=== PATIENT | female | born 1975 | race Two or more races ===

== ENCOUNTER 2022-12-30 13:39 | Emergency (ER) | payer MEDICAID, OTHER ==
[~2022-12-30] VITALS: Ht 165.1 cm; Wt 76.3 kg
[2022-12-30 15:55] VITALS: BP 114/76
[2022-12-30] MEDS ORDERED: IBUPROFEN 800 MG TAB PO ONE (16:00)
[2022-12-30] MEDS ORDERED: IBUP800T27 PO (16:02)
== END 2022-12-30 16:11 | disposition home or self-care (01) ==
LOC: ER 13:39
DX: S93.402A Sprain of unspecified ligament of left ankle, initial encounter (principal); Z79.1 Long term (current) use of non-steroidal anti-inflammatories (NSAID); W18.39XA Other fall on same level, initial encounter; Y93.89 Activity, other specified; Y92.89 Other specified places as the place of occurrence of the external cause; Y99.8 Other external cause status
CPT/HCPCS: 73590

== ENCOUNTER 2023-01-20 10:39 | Emergency (ER) | payer MEDICAID ==
[~2023-01-20] VITALS: Ht 165.1 cm; Wt 85.0 kg
[~2023-01-20 10:39] MED LIST: IBUP800T27 PO
[2023-01-20] MEDS ORDERED: LORazepam 0.5 MG TAB PO ONE (12:00)
[2023-01-20 12:16] VITALS: BP 140/79
[2023-01-20] MEDS ORDERED: LORA0.5T20 PO (13:26)
== END 2023-01-20 13:34 | disposition home or self-care (01) ==
LOC: ER 10:39
DX: F41.1 Generalized anxiety disorder (principal); F32.9 Major depressive disorder, single episode, unspecified
CPT/HCPCS: 36415; 84484; 93005

== ENCOUNTER 2025-04-10 20:22 | Emergency (ER) | payer MEDICAID ==
[~2025-04-10] VITALS: Ht 167.6 cm; Wt 96.2 kg
[~2025-04-10 20:22] MED LIST changes: +IBUP-1456 PO; -IBUP800T27 PO; +LORA-1121 PO
[2025-04-10] MEDS: HYDROcodone-ACET 10/325MG TAB PO ONE (22:15)
--- NOTE | 2025-04-10 22:22 | ED.PDOC ---
History of Present Illness HPI Comments 50 year old female presents to the ED for the c/c of Left Leg pain. Pt states that her pain started 4x days ago, and notes of no alleviating factors at this time. Pt denies any recent injury. No redness, swelling, or trauma noted. Pt denies any N/V/D, ABD pain, Chest pain, FRANKLIN, or other associated symptoms, m odifiers, recent injuries or sick contacts present at this time. Patient denies any history of low back pain or leg pain concerns. Chief Complaint: Lower Extremity Time Seen by MD: 22:19 Primary Care Provider: DAVE Reviewed Notes: Nurses Notes, Medications, Allergies Allergies: Coded Allergies: NO KNOWN ALLERGIES (Unverified , 12/30/22) Home Meds Active Scripts Lorazepam (ATIVAN TABLET) 0.5 Mg Tb, 1 TAB PO BID, #12 TAB Prov:TRICIA MCCABE 01/20/23 Ibuprofen (Ibuprofen) 800 Mg Tab, 1 TAB PO TID, #30 TAB Prov:TRICIA MCCABE 12/30/22 Information Source: Patient Mode of Arrival: Wheelchair Severity: Moderate Timing: Days Duration: Intermittent, Days Prehospital treatment: None Past Medical History PAST MEDICAL HISTORY: Anxiety, Depression Surgical History: Denies all surgeries 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 AND ASSURANCE MANAGER Hx Family History Family History: Reviewed,noncontributory to illness Social History Smoker: Non-Smoker Alcohol: Denies ETOH Use Drugs: Denies Drug Use Lives In: Home Constitutional: denies: chills, diaphoresis, fatigue, fever, malaise, sweats, weakness, others EENTM: denies: blurred vision, double vision, ear bleeding, ear discharge, ear drainage, ear pain, ear ringing, eye pain, eye redness, hearing loss, mouth pain, mouth swelling, nasal discharge, nose bleeding, nose congestion, nose pain, photophobia, tearing, throat pain, throat swelling, voice changes, others Respiratory: denies: cough, hemoptysis, orthopnea, SOB at rest, shortness of breath, SOB with excertion, stridor, wheezing, others Cardiovascular: denies: chest pain, dizzy spells, diaphoresis, Dyspnea on exertion, edema, irregular heart beat, left arm pain, lightheadedness, palpitations, PND, syncope, others Gastrointestinal: denies: abdomen distended, abdominal pain, blood streaked bowels, constipated, diarrhea, dysphagia, difficulty swallowing, hematemesis, melena, nausea, poor appetite, poor fluid intake, rectal bleeding, rectal pain, vomiting, others Genitourinary: denies: abnormal vagina bleeding, burning, dyspareunia, dysuria, flank pain, frequency, hematuria, incontinence, pain, , vagina discharge, urgency, others Neurological: denies: dizziness, fainting, headache, left sided numbness, left sided weakness, numbness, paresthesia, pre-existing deficit, right sided numb ness, right sided weakness, seizure, speech problems, tingling, tremors, weakness, others Musculoskeletal: reports: others (Left leg pain ); denies: back pain, gout, joint pain, joint swelling, muscle pain, muscle stiffness, neck pain Integumetry: denies: bruises, change in color, change in hair/nails, dryness, laceration, lesions, lumps, rash, wounds, others Allergic/Immunocompromised: denies: Difficulty Healing, Frequent Infections, Hives, Itching, others Hematologic/Lymphatic: denies: anemia, blood clots, easy bleeding, easy bruising, swollen glands, others Endocrine: denies: excessive hunger, excessive sweating, excessive thirst, excessive urination, flushing, intolerance to cold, intolerance to heat, unexplained weight gain, unexplained weight loss, others Psychiatric: denies: anxiety, bipolar disorder, depression, hopeless, panic disorder, schizophrenia, sleepless, suicidal, others All Other Systems: Reviewed and Negative Physical Exam General Appearance: Moderate Distress (Moderate distress due to leg pain concerns.), Normal HEENT: Normal ENT Inspection, Pharynx Normal, TMs Normal Neck: Full Range of Motion, Non-Tender, Normal, Normal Inspection Respiratory: Chest Non-Tender, Lungs Clear, No Accessory Muscle Use, No Respiratory Distress, Normal Breath Sounds Cardiovascular: No Edema, No JVD, No Murmur, No Gallop, Normal Peripheral Pulses, Regular Rate/Rhythm Breast Exam: Deferred Gastrointestinal: No Organomegaly, Non Tender, No Pulsatile Mass, Normal Bowel Sounds, Soft Genitalia: Deferred Pelvic: Deferred Rectal: Deferred Extremities: Other (Tenderness to palpation throughout lateral aspect of left thigh. No signs of trauma. No crepitus.) Musculoskeletal : Apperance: Normal Neurologic: Alert, Normal Affect, Normal Mood, No Sensory Deficits Cerebellar Function: NOT DONE Reflexes: NOT DONE Skin: Dry, Normal Color, Warm Lymphatic: No Adenopathy Was a procedure done? Was a procedure done?: No Differential Dx Considerations may include: Degenerative disc disease of the lumbar spine, arthritis, lumbar radiculopathy, neuropathy X-Ray, Labs, Meds, VS Vital Signs Date Time Temp Pulse Resp B/P (MAP) Pulse Ox O2 Delivery O2 Flow Rate FiO2 04/10/25 23:09 85 16 100 Room Air 04/10/25 23:09 98.2 85 16 100/67 (78) 100 98.2 04/10/25 22:09 97.7 103 18 100/71 (81) 97 97.7 X-Ray, Labs, Meds, VS Comment All studies performed the ED were evaluated by me personally. Imaging studies were unremarkable for any acute concerns including relatively unremarkable lumbar series. Patient appears to be experiencing some neuropathic pain concerns that it probably coming from her lumbar spine. Advised patient utilize pain medication and follow up with the primary care provider for continued e valuation as needed. Time of 1ST Reevaluation: 23: Reevaluation 1ST: Improved Consultation: PCP Patient Education/Counseling: Diagnosis, Treatment, Need For Follow Up Family Education/Counseling: Diagnosis, Treatment, No Family Present SEPSIS Sepsis Screen Date sepsis recognized/suspect: Apr 10, 2025 Time Sepsis recognized/suspect: 2213 Recent Procedure: No On Antibiotic Therapy: No Respiratory Rate >20: No Heart Rate >90: Yes Temp<36 C (96.8 F) or >38.3 C: No SBP <90 or MAP <65 mmHG: No New Acute Mental Status Change: No Is the patient on CPAP, BIPAP,: No Physician Orders Lumbar Spine 3 View (04/10/25 22:13) L Femur Xray (04/10/25 22:13) Vital Signs Date Time Temp Pulse Resp B/P (MAP) Pulse Ox O2 Delivery O2 Flow Rate FiO2 04/10/25 23:09 85 16 100 Room Air 04/10/25 23:09 98.2 85 16 100/67 (78) 100 98.2 04/10/25 22:09 97.7 103 18 100/71 (81) 97 97.7 Departure 1 Departure Time of Disposition: 23:26 Impression: Primary Impression: Lumbar radiculopathy Additional Impression: Neuropathic pain involving left lateral femoral cutaneous nerve Disposition: HOME / SELF CARE / HOMELESS Condition: Stable Additional Instructions: Advised pain medication as needed and additionally, patient should follow up with the primary care provider for continued evaluation if symptoms do not impro ve. e-Prescriptions Hydrocodone-Acetaminophen (Hydrocodone Bitartrate/AC 5-325 mg) 1 Tab Tab 1 TAB PO Q6HP PRN, #20 TAB Prov: RAQUEL LOPEZ PAC 04/10/25 Ibuprofen Micronized (Ibuprofen) 800 Mg Tab 800 MG PO Q8HP PRN, #20 TAB Prov: RAQUEL LOPEZ PAC 04/10/25 Discharged With: Self, Relative Critical Care Note Critical Care Time?: No Stability Stability form required: No Heart Score Heart Score: Heart Score Response (Comments) Value History N/A 0 EKG N/A 0 Age N/A 0 Risk Factors N/A 0 Troponin N/A 0 Total 0 I personally scribed for RAQUEL LOPEZ PAC ([email or web address]) on 04/10/25 at 22:22. Electronically submitted by Alex Lancaster ([email or web address]). RAQUEL LOPEZ PAC Apr 10, 2025 22:22
--- NOTE | 2025-04-10 22:56 | DVH ---
CLINICAL INDICATION: Pain TECHNIQUE: XY L FEMUR XRAY Comparison: None FINDINGS: No osseous or joint abnormality identified with no fracture or dislocation. Joint spaces are normal. IMPRESSION: No abnormality demonstrated.
--- NOTE | 2025-04-10 22:57 | DVH ---
INDICATION: Lumbar radiculopathy COMPARISON: None TECHNIQUE: 3 views of the lumbar spine were obtained. FINDINGS: The lumbar vertebral alignment is normal. Moderate L5-S1 disc height loss with adjacent endplate sclerosis. The intervertebral disc spaces are otherwise well-maintained. No significant facet arthropathy is noted. No acute fracture, vertebral compression deformity or aggressive osseous lesions. The paravertebral soft tissues are grossly unremarkable. IMPRESSION: 1. No acute fracture. 2. Mild degenerative change of the lower lumbar spine.
[2025-04-10 23:09] VITALS: BP 100/67; PULSE 85; RESP 16; TEMP 98.2; O2SAT 100
[2025-04-10] MEDS ORDERED: IBUP-1455 PO (23:27)
[2025-04-10] MEDS ORDERED: HYDR-4902 PO (23:27)
== END 2025-04-10 23:40 | disposition home or self-care (01) ==
LOC: ER 20:22
DX: M47.26 Other spondylosis with radiculopathy, lumbar region (principal); F41.9 Anxiety disorder, unspecified; F32.A Depression, unspecified; Z79.899 Other long term (current) drug therapy
CPT/HCPCS: 72100

== ENCOUNTER 2025-07-13 19:23 | Emergency (ER) | payer MEDICAID ==
[~2025-07-13] VITALS: Ht 165.1 cm; Wt 90.1 kg
[~2025-07-13 19:23] MED LIST changes: +HYDR-4902 PO; +IBUP-1455 PO
[2025-07-13 19:26] VITALS: BP 109/76; PULSE 78; RESP 16; TEMP 97.1; O2SAT 98
[2025-07-13 20:10] LABS: Hematocrit 31.9 % (36.0-46.0); Hemoglobin 10.1 g/dL (12.2-16.2); Mean Corpuscular Hemoglobin 22.4 pg (28.0-32.0); Mean Corpuscular Volume 70.6 fL (80.0-100.0); Nucleated Red Blood Cells % 0.0 %
[2025-07-13 20:15] LABS: Chloride 106 mmol/L (98-107); Potassium 3.7 mmol/L (3.5-5.1); Sodium 138 mmol/L (136-145)
[2025-07-13 20:16] LABS: Anion Gap 10 (5-15); Calcium 8.7 mg/dL (8.7-10.4); Carbon Dioxide 22 mmol/L (20-31)
[2025-07-13 20:21] LABS: BUN/Creatinine Ratio 10.8 (10.0-20.0); Glucose 88 mg/dL (74-106)
[2025-07-13 20:27] LABS: Blood Urea Nitrogen 8 mg/dL (9-23)
== END 2025-07-13 22:45 | disposition left against medical advice (07) ==
LOC: ER 19:23
DX: R55 Syncope and collapse (principal); Z79.899 Other long term (current) drug therapy
CPT/HCPCS: 36415; 80048; 84484; 85025

== ENCOUNTER 2025-07-31 19:12 | Inpatient (IN) | payer MEDICAID ==
[~2025-07-31] VITALS: Ht 165.1 cm; Wt 102.0 kg
[2025-07-31 20:04] LABS: Hematocrit 31.9 % (36.0-46.0); Hemoglobin 10.0 g/dL (12.2-16.2); Mean Corpuscular Hemoglobin 22.4 pg (28.0-32.0); Mean Corpuscular Volume 71.4 fL (80.0-100.0); Nucleated Red Blood Cells % 0.1 %
--- NOTE | 2025-07-31 20:20 | DVH ---
INDICATION: GEN WEAK TECHNIQUE: Frontal view of the chest. COMPARISON: None FINDINGS/IMPRESSION: The lungs are clear. The cardiomediastinal silhouette is unremarkable. No pleural effusion or pneumothorax. No acute osseous abnormality.
[2025-07-31 20:24] LABS: Alanine Aminotransferase 14 U/L (7-40); Albumin 4.1 g/dL (3.2-4.8); Alkaline Phosphatase 91 U/L (46-116); Anion Gap 9 (5-15); BUN/Creatinine Ratio 13.0 (10.0-20.0); Bilirubin, Total 0.3 mg/dL (0.2-1.0); Blood Urea Nitrogen 12 mg/dL (9-23); Calcium 8.7 mg/dL (8.7-10.4); Carbon Dioxide 26 mmol/L (20-31); Chloride 107 mmol/L (98-107); Glucose 89 mg/dL (74-106); Magnesium 2.0 mg/dL (1.6-2.6); Potassium 4.5 mmol/L (3.5-5.1); Sodium 142 mmol/L (136-145); Total Protein 7.3 g/dL (5.7-8.2)
--- NOTE | 2025-07-31 20:32 | ED.PDOC ---
History of Present Illness HPI Comments HPI: 50 y/o F, with PMHx of anemia presents to the ED for CC of generalized weakness. Patient states, she has been experiencing symptoms of weakness, fatigue, and body-aches [id number]. Patient reports, that she had labs drawn recently and was told that her Hbg was <7.0; unable to recall exact value at this time. Patient further relays, that she has had multiple test done to r/o cancer however, has not been diagnosed with any specific form of cancer yet. Patient denies active bleeding, vision changes, nausea, or vomiting. No other symptoms or modifying factors are present at this time. Initial Vitals BP: 101/73 HR: 95 RR: 18 O2: 97% Temp: 98.4 Past Medical History: Anemia Past Surgical History: Appendectomy, tubal ligation Social History: denies any Medications: denies any Allergies: NKA ANAYA: WEAKNESS, EXERTIONAL DYSPNEA, FATIGUE, SYNCOPAL EPISODE. NO FALL OR TRAUMA. HPI: Poor Historian. REVIEW OF SYSTEMS: CONSTITUTIONAL: Denies acute: fever, diaphoresis, chills, HEAD: Denies acute: headache, photophobia Eyes: Denies acute: Double vision, vision loss, eye pain, eye discharge. EARS: Denies acute: tinnitus, hearing loss, ear discharge, ear pain, THROAT: Denies acute: sore throat, swelling, difficulty swallowing , pain with swallowing, change in voice. NECK: Denies acute: neck pain, neck swelling, stiff neck. HEART: Denies acute : chest pain, palpitations, LUNGS: Denies acute: wheezing, cough, hemoptysis ABDOMEN: Denies acute: abdominal pain, Nausea, Vomiting, diarrhea, melena , hematemesis, hematochezia SKIN: Denies acute: rash, redness, lesions, itchiness. EXTREMITIES: Denies acute: calf pain, numbness, tingling, weakness, denies pain in extremity. Denies acute: Low back pain. Neuro: Denies acute: focal neurological deficit, motor or sensory focal neurological deficit, tremors, seizure like activity, confusion, change in mental status, loss of bowel or bladder function, cauda equina like symptoms. : Denies acute: dysuria, hematuria, flank pain, increase in urinary frequency. PSYCH: Denies acute: hallucination, suicidal ideation, homicidal ideation. FEMALE: Denies acute: abnormal vaginal bleeding, foul odor, unusual discharge. PHYSICAL EXAM: General: ----moderate----acute distress, awake and alert. Head: normocephalic, atraumatic. No raccoon's eyes, no saxena sign. Neck: supple, trachea is midline, no swelling. Throat: Normal phonation. Eyes:, no erythema, no purulent discharge, no proptosis, no icterus. Heart: regular rate, regular rhythm, no significant murmur appreciated. Lungs: no apparent respiratory distress, Able to speak in full sentences. No wheezing, no rhonchi, no crackles. No stridors Clear to auscultation bilaterally. Abdomen: non tender to palpation, non distended, soft, no guarding, no rebound, + bowel sounds. Neuro: Awake, Alert, oriented to name, self, situation, follows commands GCS=15. Speech is normal. Skin: no petechia, no purpura, no cyanosis, non-pale, not jaundice. Lower extremities: --no - Pitting edema no deformity, no focal swelling, no calf TTP. Makes eye contact. moves all four extremities. Face: no apparent facial droop. Ambulating in the ED independently. ED COURSE: DISCLAIMER: This medical document was created using an electronic medical record system with voice recognition software and computerized dictation system. Although this document has been carefully reviewed, there might still be some phonetic and typographical errors. Occasional wrong-word or "sound-alike" substitutions may have occurred due to the inherent limitations of voice recognition software. These areas are purely typographical due to imperfections of the software programs and do not reflect any compromise in the patient's medical care. Please read the chart carefully and recognize, using context, where these substitutions have occurred. Chief Complaint: General Weakness Time Seen by MD: 20:25 Primary Care Provider: DAVE Reviewed Notes: Nurses Notes, Medications, Allergies Allergies: Coded Allergies: NO KNOWN ALLERGIES (Unverified , 12/30/22) Home Meds Active Scripts Hydrocodone-Acetaminophen (Hydrocodone Bitartrate/AC 5-325 mg) 1 Tab Tab, 1 TAB PO Q6HP PRN, #20 TAB Prov:RAQUEL LOPEZ PAC 04/10/25 Ibuprofen Micronized (Ibuprofen) 800 Mg Tab, 800 MG PO Q8HP PRN, #20 TAB Prov:RAQUEL LOPEZ PAC 04/10/25 Lorazepam (ATIVAN TABLET) 0.5 Mg Tb, 1 TAB PO BID, #12 TAB Prov:TRICIA MCCABE 01/20/23 Ibuprofen (Ibuprofen) 800 Mg Tab, 1 TAB PO TID, #30 TAB Prov:TRICIA MCCABE 12/30/22 Information Source: Patient Mode of Arrival: Ambulatory Severity: Moderate Timing: Months Duration: Since onset Prehospital treatment: None Was a procedure done? Was a procedure done?: No Differential Dx Considerations may include: anemia X-Ray, Labs, Meds, VS Vital Signs Date Time Temp Pulse Resp B/P (MAP) Pulse Ox O2 Delivery O2 Flow Rate FiO2 07/31/25 19:18 98.4 95 18 101/73 97 98.4 Lab Test 07/31/25 20:00 07/31/25 19:44 Range/Units Urine Color Pending Urine Clarity Pending Urine pH Pending Urine Specific Tell Pending Urine Protein Pending Urine Ketones Pending Urine Blood Pending Urine Nitrite Pending Urine Bilirubin Pending Urine Urobilinogen Pending Urine Leukocyte Esterase Pending Urine RBC Pending Urine Microscopic WBC Pending Urine Squamous Epithelial Cells Pending Urine Bacteria Pending Urine Glucose Pending White Blood Count 5.9 4.4-10.8 10^3/uL Red Blood Count 4.47 4.0-5.20 10^6/uL Hemoglobin 10.0 L 12.2-16.2 g/dL Hematocrit 31.9 L 36.0-46.0 % Mean Corpuscular Volume 71.4 L 80.0-100.0 fL Mean Corpuscular Hemoglobin 22.4 L 28.0-32.0 pg Mean Corpuscular Hemoglobin Concent 31.4 L 32.0-36.0 g/dL Red Cell Distribution Width 17.6 H 11.8-14.3 % Platelet Count 341 140-450 10^3/uL Mean Platelet Volume 7.4 6.9-10.8 fL Neutrophils (%) (Auto) 65.7 37.0-80.0 % Lymphocytes (%) (Auto) 23.6 10.0-50.0 % Monocytes (%) (Auto) 9.1 0.0-12.0 % Eosinophils (%) (Auto) 1.1 0.0-7.0 % Basophils (%) (Auto) 0.5 0.0-2.0 % Neutrophils # (Auto) 3.9 1.6-8.6 10 ^3/uL Lymphocytes # (Auto) 1.4 0.4-5.4 10 ^3/uL Monocytes # (Auto) 0.5 0-1.3 10 ^3/uL Eosinophils # (Auto) 0.1 0-0.8 10 ^3/uL Basophils # (Auto) 0 0-0.2 10 ^3/uL Nucleated Red Blood Cells 0.1 % Sodium Level 142 136-145 mmol/L Potassium Level 4.5 3.5-5.1 mmol/L Chloride Level 107 98-107 mmol/L Carbon Dioxide Level 26 20-31 mmol/L Anion Gap 9 5-15 Blood Urea Nitrogen 12 9-23 mg/dL Creatinine 0.92 0.550-1.02 mg/dL Glomerular Filtration Rate Calc 76 >90 mL/min BUN/Creatinine Ratio 13.0 10.0-20.0 Serum Glucose 89 74-106 mg/dL Lactic Acid Level 1.3 0.4-2.0 mmol/L Calcium Level 8.7 8.7-10.4 mg/dL Magnesium Level 2.0 1.6-2.6 mg/dL Total Bilirubin 0.3 0.2-1.0 mg/dL Aspartate Amino Transferase (AST) 14 13-40 U/L Alanine Aminotransferase (ALT) 14 7-40 U/L Alkaline Phosphatase 91 46-116 U/L Troponin I High Sensitivity < 3 L </=34 ng/L Total Protein 7.3 5.7-8.2 g/dL Albumin 4.1 3.2-4.8 g/dL [address] [address] Ph: [phone] DIAGNOSTIC IMAGING Diagnostic Imaging Report : [id number] Signed PATIENT: JACLYN LAMBISISACCT: [id number] UNIT: [id number] : 1975 LOC: ER ROOM / BED: / AGE / SEX: 50 / F ADM STATUS: REG ER SERVICE 28 ORDERING PHYSICIAN: PRABHAKAR RIBEIRO DO PROCEDURE(s): CXRP - CHEST PORTABLE REASON: GEN SAMIR ORDER NUMBER(s): [id number], ACCESSION NUMBER(s): [id number] INDICATION: GEN DAWSON TECHNIQUE: Frontal view of the chest. COMPARISON: None FINDINGS/IMPRESSION: The lungs are clear. The cardiomediastinal silhouette is unremarkable. No pleural effusion or pneumothorax. No acute osseous abnormality. ATED BY: FEDE BLANTON MD DICTATED DATE/TIME: 07/31/252016 SIGNED BY: FEDE BLANTON MD SIGNED DATE/TIME: 07/31/252016 CC: Time of 1ST Reevaluation: 20:55 Reevaluation 1ST: Unchanged Patient Education/Counseling: Diagnosis, Treatment Family Education/Counseling: No Family Present SEPSIS Sepsis Screen Date sepsis recognized/suspect: Jul 31, 2025 Time Sepsis recognized/suspect: 1923 Recent Procedure: No On Antibiotic Therapy: No Respiratory Rate >20: No Heart Rate >90: Yes Temp<36 C (96.8 F) or >38.3 C: No SBP <90 or MAP <65 mmHG: No New Acute Mental Status Change: No Is the patient on CPAP, BIPAP,: No Physician Orders Maintenance And Custodian Supervisor (07/31/25 ) Urinalysis (07/31/25 19:29) Type And Screen (07/31/25 19:29) Electrocardigram (07/31/25 19:29) Chest Portable (07/31/25 19:29) Vital Signs Date Time Temp Pulse Resp B/P (MAP) Pulse Ox O2 Delivery O2 Flow Rate FiO2 07/31/25 19:18 98.4 95 18 101/73 97 98.4 Laboratory Tests Test 07/31/25 19:44 Lactic Acid Level 1.3 mmol/L (0.4-2.0) White Blood Count 5.9 10^3/uL (4.4-10.8) Departure 1 Departure Time of Disposition: 21:12 Impression: Primary Impression: Symptomatic anemia Additional Impressions: Generalized weakness Exertional dyspnea Syncope and collapse Disposition: ADMITTED INPATIENT Admit to: [facility] Condition: Guarded Discharged With: Self Critical Care Note Critical Care Time?: No I personally scribed for PRABHAKAR RIBEIRO DO ([email or web address]) on 07/31/25 at 20:32. Electronically submitted by Cece Carpenter ([email or web address]). I personally scribed for PRABHAKAR RIBEIRO DO ([email or web address]) on 07/31/25 at 21:08. Electronically submitted by Cece Carpenter ([email or web address]). PRABHAKAR RIBEIRO DO Jul 31, 2025 20:32
[2025-07-31 21:20] LABS: Urine Protein, UAD TRACE (Negative)
[2025-07-31 21:45] VITALS: PULSE 86; RESP 18; O2SAT 98
[2025-07-31] MEDS: SODIUM CHLORIDE 0.9% 1,000 ML IV ONE (22:00)
[2025-08-01] VITALS (7 sets, daily range): BP systolic 94–130; BP diastolic 42–67; PULSE 79–91; RESP 16–20; TEMP 97.8–98.8; O2SAT 95–100
[2025-08-01] MEDS ORDERED: ONDANSETRON HCL 4 MG/2 ML VIAL IV PRN (00:15)
[2025-08-01] MEDS ORDERED: ACETAMINOPHEN 325 MG TAB PO PRN (00:15)
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
[2025-08-01 00:46] LABS: Hematocrit 30.4 % (36.0-46.0); Hemoglobin 9.5 g/dL (12.2-16.2)
[2025-08-01 00:59] LABS: Alanine Aminotransferase 12 U/L (7-40); Alkaline Phosphatase 84 U/L (46-116); Total Protein 7.1 g/dL (5.7-8.2)
[2025-08-01 01:00] LABS: Albumin 4.0 g/dL (3.2-4.8)
[2025-08-01 01:00] LABS: Total Iron Binding Capacity 364.0 ug/dL (250-425)
[2025-08-01 01:03] LABS: Bilirubin, Total 0.3 mg/dL (0.2-1.0)
[2025-08-01 01:03] LABS: Iron 43.0 ug/dL (50-170)
[2025-08-01 01:44] LABS: Bilirubin, Direct < 0.1 mg/dL (<0.3)
--- NOTE | 2025-08-01 02:00 | DVH ---
Procedure: US PELVIC 08/01/2025 01:07 AM Indication: abdominal pain Comparison: US PELVIC TRANS AB AND TRANSVAG on DOS: 07/23/25 Technique: Multiple real-time grayscale transvaginal and transabdominal sonographic images along with color and duplex doppler of the uterus and ovaries were obtained FINDINGS: UTERUS: Retroverted, measuring 9.3 x 6.6 x 6.8 cm in length. The uterus is heterogeneous in appearance. ENDOMETRIAL STRIPE: 14 mm, with small cystic spaces, the largest of which measures up to 9 mm. RIGHT OVARY: 2.1 x 2.2 x 2.0 cm. 4.8 mL in volume. Preserved vascular flow. No suspicious lesions identified. LEFT OVARY: 2.1 x 2.0 x 1.9 cm in length. Preserved vascular flow. There is a thick-walled left adnexal lesion with peripheral vascularity measuring 1.6 cm. CUL-DE-SAC: No significant fluid noted. OTHER: None. IMPRESSION: 1. Heterogeneous appearance of the uterus. Small cystic regions in the endometrium. Correlation with HCG values is suggested. A nonemergent MRI of the pelvis may be beneficial in further assessment of the uterine heterogeneity as clinically indicated. 2. Probable complex left adnexal cyst, though correlation with HCG values is suggested to exclude the possibility of ectopic . A 6-12 week follow-up ultrasound is suggested to ensure appropriate resolution.
[2025-08-01] MEDS: HYDROcodone-ACET 5/325MG TAB PO PRN (03:31)
[2025-08-01] MEDS ORDERED: BUSP15TA60 PO (03:40)
[2025-08-01] MEDS ORDERED: HYDR50TA69 PO (03:40)
[2025-08-01] MEDS ORDERED: VENL150C3 PO (03:40)
[2025-08-01 04:48] LABS: Hemoglobin 9.9 g/dL (12.2-16.2); Nucleated Red Blood Cells % 0.0 %
[2025-08-01 04:50] LABS: Hematocrit 31.8 % (36.0-46.0); Mean Corpuscular Hemoglobin 22.9 pg (28.0-32.0); Mean Corpuscular Volume 73.2 fL (80.0-100.0)
[2025-08-01 04:59] LABS: Alanine Aminotransferase 10 U/L (7-40); Albumin 4.0 g/dL (3.2-4.8); Anion Gap 11 (5-15); BUN/Creatinine Ratio 11.5 (10.0-20.0); Blood Urea Nitrogen 9 mg/dL (9-23); Carbon Dioxide 21 mmol/L (20-31); Sodium 141 mmol/L (136-145); Total Protein 7.4 g/dL (5.7-8.2)
[2025-08-01 05:09] LABS: Alkaline Phosphatase 88 U/L (46-116)
[2025-08-01 05:11] LABS: Bilirubin, Total 0.2 mg/dL (0.2-1.0); Calcium 8.3 mg/dL (8.7-10.4); Chloride 109 mmol/L (98-107); Glucose 73 mg/dL (74-106); Potassium 3.5 mmol/L (3.5-5.1)
--- NOTE | 2025-08-01 05:23 | DVH ---
MEDICAL RECORDS NUMBER: [id number] PROCEDURE: CT CT AB PEL WO CON-NO ORAL OR IV DATE: 08/01/2025 01:33 AM HISTORY: abdominal pain CONTRAST: none Oral Contrast: No oral contrast was utilized. COMPARISON: US PELVIC on DOS: 08/01/25, US PELVIC TRANS AB AND TRANSVAG on DOS: 07/23/25, CT CHEST/ABD/PEL W - IV on DOS: 01/25/24 RADIATION DOSE INFORMATION: Automated exposure control dose reduction techniques were used. FINDINGS: Lung bases: Limited evaluation of the lung bases demonstrates no focal airspace process or pneumothorax. Mediastinum:Lower mediastinal structures appear unremarkable. Liver: The liver is normal in size. There is no focal liver lesion. Biliary ducts: There is no evidence of intrahepatic or extrahepatic biliary ductal dilatation. Gallbladder: No abnormality is seen of the gallbladder. Spleen: The spleen is normal in size without focal lesion. Stomach: The stomach appears unremarkable. Pancreas: The pancreas is unremarkable. Adrenal glands: The adrenal glands are unremarkable. Kidneys: The kidneys are normal in size and are symmetric. There is no evidence of hydronephrosis. No focal renal lesion is noted. Aorta and IVC: The aorta and IVC are patent and are normal in size. Mesenteric vessels: Major mesenteric vessels appear to be intact. Bowel: The visualized portions of the small and large bowel are normal in caliber. Small fat containing hernias were seen near the umbilicus without bowel involvement. Appendix: The appendix is not seen. Pelvis:Pelvic structures appear unremarkable. Lymph nodes: There is no evidence of lymphadenopathy. Osseous structures: The osseous structures are intact. No lytic or blastic osseous lesion is noted. Free fluid/free air: None IMPRESSION: 1. No acute process is seen. No findings are seen to explain the patient's symptoms.
[2025-08-01] MEDS: POLYETHYLENE GLYCOL 17 GM PWDR PO ONE (05:27)
[2025-08-01] MEDS: SODIUM CHLOR 0.9% PF (SALINE LOCK) 10ML VIAL/SYR IV SCH (05:27)
[2025-08-01] MEDS: FERROUS SULFATE 325mg EC TAB PO ONE (05:27)
[2025-08-01] MEDS: LORazepam 0.5 MG TAB PO PRN ×2 (05:34→13:11)
[2025-08-01] MEDS ORDERED: IRON SUCROSE COMPLEX 110 ML IV SCH (12:00)
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
[2025-08-01] MEDS: FERROUS SULFATE 325mg EC TAB PO SCH (18:58)
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
[2025-08-01] MEDS: DOCUSATE SOD 100 MG CAP PO ONE (21:29)
[2025-08-01] MEDS: PANTOPRAZOLE 40 MG TAB PO ONE (21:29)
[2025-08-02] VITALS (8 sets, daily range): BP systolic 90–108; BP diastolic 53–76; PULSE 75–87; RESP 16–17; TEMP 97.7–98.1; O2SAT 98–100
[2025-08-02] MEDS: PANTOPRAZOLE 40 MG TAB PO SCH (05:10)
[2025-08-02 07:28] LABS: Hemoglobin 9.3 g/dL (12.2-16.2)
[2025-08-02 07:31] LABS: Hematocrit 29.2 % (36.0-46.0); Mean Corpuscular Hemoglobin 22.7 pg (28.0-32.0); Mean Corpuscular Volume 71.4 fL (80.0-100.0); Nucleated Red Blood Cells % 0.1 %
[2025-08-02 07:43] LABS: Albumin 3.6 g/dL (3.2-4.8); Alkaline Phosphatase 76 U/L (46-116); Anion Gap 10 (5-15); BUN/Creatinine Ratio 12.2 (10.0-20.0); Carbon Dioxide 23 mmol/L (20-31); Chloride 106 mmol/L (98-107); Glucose 85 mg/dL (74-106); Potassium 4.0 mmol/L (3.5-5.1); Sodium 139 mmol/L (136-145); Total Protein 6.6 g/dL (5.7-8.2)
[2025-08-02 07:44] LABS: Alanine Aminotransferase 9 U/L (7-40); Bilirubin, Total 0.3 mg/dL (0.2-1.0); Blood Urea Nitrogen 9 mg/dL (9-23); Calcium 8.4 mg/dL (8.7-10.4)
--- NOTE | 2025-08-02 09:19 | DVHINCON2 ---
Date of service: Aug 02, 2025 Referring Physician Hospitalist/ER physician consulted Dr. Lisa Hubbard last evening I am covering for the weekend and picked up the consult this a.m.. Reason for Consultation Microcytic anemia, chronic, left adnexal cyst. History of Present Illness History Source: Patient Home Meds Active Scripts Hydrocodone-Acetaminophen (Hydrocodone Bitartrate/AC 5-325 mg) 1 Tab Tab, 1 TAB PO Q6HP PRN, #20 TAB Prov:RAQUEL LOPEZ PAC 04/10/25 Ibuprofen Micronized (Ibuprofen) 800 Mg Tab, 800 MG PO Q8HP PRN, #20 TAB Prov:RAQUEL LOPEZ PAC 04/10/25 Lorazepam (ATIVAN TABLET) 0.5 Mg Tb, 1 TAB PO BID, #12 TAB Prov:TRICIA MCCABE 01/20/23 Ibuprofen (Ibuprofen) 800 Mg Tab, 1 TAB PO TID, #30 TAB Prov:TRICIA MCCABE 12/30/22 Reported Medications Buspirone Hcl (Buspirone Hcl) 15 Mg Tab, 10 MG PO TID, TAB 08/01/25 Hydroxyzine Hcl (Hydroxyzine Hcl) 50 Mg Tab, 50 MG PO PRN for ANXIETY, TAB 08/01/25 Venlafaxine Hydrochloride (Effexor Xr) 150 Mg Cap, 175 MG PO DAILY, CAP 08/01/25 Chief Complaint of Abdominal/F: Other (Patient denies any complaints at this time she has just had chronic fatigue. She did state she noted some perirectal bleeding when she would wipe after defecation. She has had fairly heavy periods last July 13, 2025 she states 3 months ago she had really heavy. .) Past Medical History Cardiac: No pertinent Hx Pulmonary: No pertinent Hx Central Nervous System: No pertinent Hx GI: No pertinent Hx Hemotology/Oncology: No pertinent Hx Hepatobiliary: No pertinent Hx Psychiatric: Anxiety, Depression Musculoskeletal: No pertinent Hx Rheumotologic: No pertinent Hx Infectious Disease: No peritnent Hx ENT: No pertinent Hx Renal/: No pertinent Hx Endocrine: No pertinent Hx Dermatology: No pertinent Hx Past Surgical History: Other (Tubal ligation, appendectomy, left shoulder surgery no complications) Family History: No pertinent Hx Patient Family History: Asthma 19 CHILD, Onset: - 19 CHILD, Onset:25's - 30 Depression G8 BROTHER G8 BROTHER Hypercholesterolemia G8 MOTHER Malignant neoplasm of breast G8 MOTHER Osteoporosis G8 MOTHER Smoker: No Hx (Negative) Alocohol: None Drugs: None Domestic Violence: Neg Review of Systems Constitutional: No symptom reported Ears, Nose, & Throat: No symptom reported Eyes: No symptom reported Pulmonary/Respiratory: No symptom reported Cardiovascular: No symptom reported Gastrointestinal: No symptom reported Genitourinary: No symptom reported Musculoskeletal: No symptom reported Skin: No symptom reported Psychiatric: Depressed, Anxiety Endocrine: No symptom reported Hemotologic/Lymphatic: No symptom reported H&P Exam Vital Signs Vital Signs Date Time Temp Pulse Resp B/P (MAP) Pulse Ox O2 Delivery O2 Flow Rate FiO2 08/02/25 08:00 Room Air* 0 21 08/02/25 05:00 98.1 80 16 105/76 (86) 100 98.1 General Appeara: Well developed, Well nourished, Normal Appearance Head Exam: Normal inspection Neck Exam: Normal inspection, Non-tender, Normal alignment Eye Exam: bilateral eye Normal inspection, bilateral eye PERRL, bilateral eye EOMI Ear Exam: bilateral ear Auricle normal, bilateral ear Canal normal, bilateral ear TM normal Nasal Exam: Normal inspection Mouth: Normal Inspection Pulmonary/Respiratory: Normal inspection, Normal breath sounds, Chest non- tender, Lungs clear Cardiovascular/Chest: Normal inspection, Regular rate, Normal Rhythm Abdominal Exam: Normal bowel sounds, Soft, No tenderness, No hepatospenomegaly, No masses Back Exam: Normal inspection Pelvic Exam: External exam normal Male Genital Exam: Normal genitalia, Normal prostate Hip exam: Normal inspection, Non-tender, Normal range of motion Legs: bilateral leg non-tender, bilateral leg normal inspection, bilateral leg normal range of motion, bilateral leg no evidence of injury Knees: bilateral knee non-tender, bilateral knee normal inspection, bilateral knee normal range of motion, bilateral knee no evidence of injury Ankle Exam: bilateral ankle Normal inspection, bilateral ankle Non-tender, bilateral ankle Normal range of motion, bilateral ankle No evidence of injury Foot: bilateral foot non-tender, bilateral foot normal inspection, bilateral foot normal range of motion, bilateral foot no evidence of injury [employer] Exam: Normal hearing, Normal speech Motor/Sensory: Normal sensory function, Normal motor function Neuro/Mental St: Alert, Oriented Appearance: Appropriate appearance, Appropriate insight Eye contact/ Speech: Cooperative, Good eye contact, Normal speech Skin Exam: Normal inspection, Normal color, Warm/dry Labs/Xrays Labs Test 08/02/25 06:46 08/01/25 03:51 08/01/25 00:25 08/01/25 00:03 Range/Units White Blood Count 4.8 # 4.4-10.8 10^3/uL Red Blood Count 4.09 4.0-5.20 10^6/uL Hemoglobin 9.3 L 12.2-16.2 g/dL Hematocrit 29.2 L 36.0-46.0 % Mean Corpuscular Volume 71.4 L 80.0-100.0 fL Mean Corpuscular Hemoglobin 22.7 L 28.0-32.0 pg Mean Corpuscular Hemoglobin Concent 31.8 L 32.0-36.0 g/dL Red Cell Distribution Width 17.4 H 11.8-14.3 % Platelet Count 297 140-450 10^3/uL Mean Platelet Volume 7.6 6.9-10.8 fL Neutrophils (%) (Auto) 61.3 37.0-80.0 % Lymphocytes (%) (Auto) 27.2 10.0-50.0 % Monocytes (%) (Auto) 9.9 0.0-12.0 % Eosinophils (%) (Auto) 1.2 0.0-7.0 % Basophils (%) (Auto) 0.4 0.0-2.0 % Neutrophils # (Auto) 2.9 1.6-8.6 10 ^3/uL Lymphocytes # (Auto) 1.3 0.4-5.4 10 ^3/uL Monocytes # (Auto) 0.5 0-1.3 10 ^3/uL Eosinophils # (Auto) 0.1 0-0.8 10 ^3/uL Basophils # (Auto) 0 0-0.2 10 ^3/uL Nucleated Red Blood Cells 0.1 % Sodium Level 139 136-145 mmol/L Potassium Level 4.0 3.5-5.1 mmol/L Chloride Level 106 98-107 mmol/L Carbon Dioxide Level 23 20-31 mmol/L Anion Gap 10 5-15 Blood Urea Nitrogen 9 9-23 mg/dL Creatinine 0.74 0.550-1.02 mg/dL Glomerular Filtration Rate Calc 99 >90 mL/min BUN/Creatinine Ratio 12.2 10.0-20.0 Serum Glucose 85 74-106 mg/dL Calcium Level 8.4 L 8.7-10.4 mg/dL Total Bilirubin 0.3 0.2-1.0 mg/dL Aspartate Amino Transferase (AST) 15 13-40 U/L Alanine Aminotransferase (ALT) 9 7-40 U/L Alkaline Phosphatase 76 46-116 U/L Total Protein 6.6 5.7-8.2 g/dL Albumin 3.6 3.2-4.8 g/dL Creatine Kinase 30 L 34-145 U/L Direct Bilirubin < 0.1 <0.3 mg/dL Iron Level 43 L 50-170 ug/dL Total Iron Binding Capacity 364 250-425 ug/dL Percent Iron Saturation 11.8 L 15-50 % Ferritin 4.8 L 10-291 ng/mL Beta HCG, Quantitative 0.3 L 1.5-4.2 mIU/mL Test 07/31/25 20:00 07/31/25 19:44 Range/Units Urine Color Light-yellow Yellow Urine Clarity Clear Clear Urine pH 6.0 5.0-9.0 Urine Specific [place] 1.026 1.001-1.035 Urine Protein Trace H Negative Urine Ketones Trace Negative Urine Blood Negative Negative /uL Urine Nitrite Negative Negative Urine Bilirubin Negative Negative Urine Urobilinogen Normal Negative mg/dL Urine Leukocyte Esterase Negative Negative /uL Urine RBC <1 0 - 4 /hpf Urine Microscopic WBC 1 0-5 /HPF Urine Squamous Epithelial Cells Few <5 /hpf Urine Bacteria None seen None Seen /hpf Urine Mucus Few None Seen Urine Glucose Normal Normal mg/dL Lactic Acid Level 1.3 0.4-2.0 mmol/L Magnesium Level 2.0 1.6-2.6 mg/dL Troponin I High Sensitivity < 3 L </=34 ng/L Assessment/Plan Admitting Diagnosis: Thickened endometrium anovulatory cycles microcytic anemia no active bleeding left adnexal complex cyst likely benign no surgical pelvis/abdomen at this time Plan Recommend CA 125 serum level 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 Follow up with GI as outpatient likely needs colonoscopy. Plan discussed with: Patient MARGUERITE GONZALEZ DO Aug 02, 2025 09:19
[2025-08-02] MEDS: GOLYTELY 4L KIT PO ONE (13:34)
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
--- NOTE | 2025-08-02 18:49 | DVHPN2 ---
Progress Note - Dictate Date Seen: Aug 02, 2025 Medical Necessity Reason Pt with a Central, PICC or Fol: No Subjective Patient has complaints of some weakness some heartburn belching ulcer had some history of rectal bleeding on and off. Hemoglobin is stable vital signs Vital Sign Date Time Temp Pulse Resp B/P (MAP) Pulse Ox O2 Delivery O2 Flow Rate FiO2 08/02/25 16:38 97.9 79 16 90/53 (65) 98 97.9 08/02/25 08:00 Room Air* 0 21 Total Intake and Output 08/01/25 08/01/25 08/02/25 15:00 23:00 07:00 Intake Total 300 ml Output Total 200 ml Balance 100 ml medications Current Medications Medications Dose Ordered Sig/Valorie Route Start Time Stop Time Status Last Admin Dose Admin Sodium Chloride 10 ml Q8HR IV 08/01/25 06:00 08/02/25 14:01 10 ML Acetaminophen/ Hydrocodone Bitart 1 tab Q4HP PRN PO 08/01/25 00:15 08/02/25 13:36 1 TAB Ondansetron HCl 4 mg Q4HP PRN IV 08/01/25 00:15 Acetaminophen 650 mg Q6HP PRN PO 08/01/25 00:15 Ferrous Sulfate 325 mg BIDWM PO 08/01/25 18:00 08/02/25 17:41 325 MG Buspirone HCl 10 mg Q12HR PO 08/01/25 22:00 08/02/25 10:33 10 MG Lorazepam 0.5 mg Q8HR PRN PO 08/01/25 12:45 08/02/25 17:41 0.5 MG Patient Own Medication 175 mg DAILY PO 08/02/25 14:10 Hold Pantoprazole Sodium 40 mg DAILY@0600 PO 08/03/25 06:00 objective Abdomen is soft nontender no masses bowel sounds normal laboratory and microbiology Laboratory Tests 08/02/25 06:46 Test 08/02/25 06:46 Range/Units Serum Glucose 85 74-106 mg/dL Assessment/Plan 50-year-old female with complaints of abdominal pain weakness anemia heartburn and constipation anorexia rectal bleeding Abdomen is soft but tenderness in the epigastrium with lower quadrant No masses Patient is a low hemoglobin apparently and the blood in the stool and GI symptoms We will recommend EGD and colon evaluation because of the upper GI as well as symptoms and constipation bleeding Procedure risks benefits alternatives explained to the patient and agreeable for same Albert Rodas Plan discussed with: Patient LAYNE RODAS MD Aug 02, 2025 18:48
[2025-08-03] VITALS (8 sets, daily range): BP systolic 93–111; BP diastolic 56–71; PULSE 16–105; RESP 16–17; TEMP 97.9–99.8; O2SAT 10–98
[2025-08-03] MEDS: PANTOPRAZOLE 40 MG TAB PO SCH (05:31)
[2025-08-03 08:53] LABS: Hematocrit 32.3 % (36.0-46.0); Hemoglobin 10.1 g/dL (12.2-16.2); Mean Corpuscular Hemoglobin 22.6 pg (28.0-32.0); Mean Corpuscular Volume 72.4 fL (80.0-100.0); Nucleated Red Blood Cells % 0.1 %
[2025-08-03 09:10] LABS: Alanine Aminotransferase 12 U/L (7-40); Albumin 3.8 g/dL (3.2-4.8); Alkaline Phosphatase 91 U/L (46-116); Anion Gap 10 (5-15); BUN/Creatinine Ratio 6.3 (10.0-20.0); Carbon Dioxide 24 mmol/L (20-31); Chloride 105 mmol/L (98-107); Glucose 76 mg/dL (74-106); Potassium 3.9 mmol/L (3.5-5.1); Sodium 139 mmol/L (136-145); Total Protein 7.1 g/dL (5.7-8.2)
[2025-08-03 09:11] LABS: Bilirubin, Total 0.5 mg/dL (0.2-1.0); Blood Urea Nitrogen 5 mg/dL (9-23); Calcium 8.5 mg/dL (8.7-10.4)
--- NOTE | 2025-08-03 09:33 | DVHPNRES ---
Progress Note Date Seen: Aug 03, 2025 Resident Creating Document: JOSIAH WARREN RESIDENT Medical Necessity Reason Pt with a Central, PICC or Fol: No Subjective Review of Systems Patient seen and examined at bedside Scheduled to undergo colonoscopy and endoscopy today Denies any new complaints, denies any nausea vomiting or active signs of bleeding overnight Stable H&H Objective vital signs Vital Sign Date Time Temp Pulse Resp B/P (MAP) Pulse Ox O2 Delivery O2 Flow Rate FiO2 08/03/25 08:48 98.1 84 17 104/71 (82) 98 98.1 08/03/25 08:00 Room Air* 0 21 Total Intake and Output 08/02/25 08/02/25 08/03/25 15:00 23:00 07:00 Intake Total 1580 ml 3600 ml Output Total 3500 ml Balance 1580 ml 100 ml medications Current Medications Medications Dose Ordered Sig/Valorie Route Start Time Stop Time Status Last Admin Dose Admin Sodium Chloride 10 ml Q8HR IV 08/01/25 06:00 08/03/25 05:31 10 ML Acetaminophen/ Hydrocodone Bitart 1 tab Q4HP PRN PO 08/01/25 00:15 08/02/25 20:57 1 TAB Ondansetron HCl 4 mg Q4HP PRN IV 08/01/25 00:15 Acetaminophen 650 mg Q6HP PRN PO 08/01/25 00:15 Ferrous Sulfate 325 mg BIDWM PO 08/01/25 18:00 08/02/25 17:41 325 MG Buspirone HCl 10 mg Q12HR PO 08/01/25 22:00 08/02/25 22:00 10 MG Lorazepam 0.5 mg Q8HR PRN PO 08/01/25 12:45 08/02/25 17:41 0.5 MG Patient Own Medication 175 mg DAILY PO 08/02/25 14:10 Hold Pantoprazole Sodium 40 mg DAILY@0600 PO 08/03/25 06:00 Examination General Appearance: Alert, Oriented X3, Cooperative, No acute distress HEENT: Atraumatic, PERRLA, EOMI, Mucous membrane moist/pink Respiratory: Clear to auscultation, Normal air movement Cardiovascular: Regular rate, Normal S1, Normal S2, No murmurs, no chest wall tenderness Abdominal: tenderness in the midepigastric region Extremities: No clubbing, No cyanosis, No edema, Normal pulses, No tenderness/swelling Skin: No rashes, No breakdown, No significant lesion Neuro: Normal gait, Normal speech, Strength at 5/5 X4 ext, Normal tone, Sensation intact, Cranial nerves 3-12 NL, Reflexes 2+ Psych/Mental Status: Mental status NL, Mood NL laboratory and microbiology Laboratory Tests 08/03/25 07:39 Test 08/03/25 07:39 Range/Units Serum Glucose 76 74-106 mg/dL Problem List/Assessment/Plan Problem List/Assessment/Plan Symptomatic anemia, rule out GI bleeding Acute on chronic Microcytic hypochromic anemia Small cystic regions in the endometrium Possible endometriosis? Probable complex left adnexal cyst Ruled out ectopic Intractable abdominal pain likely due to above OBGYN consult- advised outpatient CA 125, hysteroscopy, D and C, ablation Plan for EGD and colonoscopy tomorrow CT abdominal: No acute process is seen. Pelvic US: Heterogeneous appearance of the uterus. Small cystic regions in the endometrium. Probable complex left adnexal cyst. RIGHT OVARY: 2.1 x 2.2 x 2.0 cm. 4.8 mL in volume. Preserved vascular flow. No suspicious lesions identified. LEFT OVARY: 2.1 x 2.0 x 1.9 cm in length. Preserved vascular flow. There is a thick-walled left adnexal lesion with peripheral vascularity measuring 1.6 cm. Chest X-ray: The lungs are clear. The cardiomediastinal silhouette is unremarkable. No pleural effusion or pneumothorax. No acute osseous abnormality. Stool occult blood, rectal exam performed, no evidence of active bleeding. Not enough stool to send to lab. Will collect stool sample later on. Iron 43, TIBC 364, % Ferritin 4.8 Hepatic panel Hemoglobin & Hematocrit Ordered EKG HCG within normal limits pain management with [place] and Tylenol Zofran 4 MG IV q4h Hx of Anxiety, Depression, PTSD Lorazepam 0.5 MG PO q12h Obesity, BMI 32.6 kg/m2 I have counseled the patient on healthy lifestyle modifications Plan discussed with patient and spouse at bedside in detail for more than 25 minutes, all questions were answered and concerns were addressed. Patient was instructed repeatedly to follow up with process camera operator in the outpatient setting for measurement of CA 125 as well as any further workup as indicated. Patient and spouse demonstrated understanding. Diet: Regular Goals of care: Full code Plan discussed with patient Plan discussed with Dr. Shepard Plan discussed with: Patient, Other (RN) Date of Service: Aug 03, 2025 Billing Provider: ANASTACIA SHEPARD MD Common Visit Codes: [id number] INP/OBS CARE(HIGH) JOSIAH WARREN RESIDENT Aug 03, 2025 09:33 ANASTACIA SHEPARD MD Aug 03, 2025 22:56
[2025-08-03] MEDS: LORazepam 2MG/ML-1ML VIAL IV PRN (09:42)
[2025-08-03] MEDS ORDERED: diphenhydrAMINE HCL 50 MG/1 ML VL ONE (10:06)
[2025-08-03] MEDS ORDERED: LIDOCAINE VISCOUS 2% 15ML UD ONE (10:22)
[2025-08-03] MEDS: fentaNYL CITRATE 100 MCG/2 ML VL ONE (10:37)
[2025-08-03] MEDS: MIDAZOLAM HCL 2MG/2ML 2ml VIAL (1mg/ml) ONE (10:46)
--- NOTE | 2025-08-03 11:33 | DVHOP2 ---
Operative Report DATE OF PROCEDURE: 08/03/25 INDICATIONS FOR THE PROCEDURE: Rectal bleeding constipation PROCEDURE PERFORMED: Colonoscopy and polypectomy by snare Colonoscopy and biopsy of the mildly inflamed sigmoid POSTOPERATIVE DIAGNOSIS: Large sigmoid colon polyp in the midsigmoid about 20 mm broad-based stalk removed completely with the help of the hot snare Mild nonspecific sigmoiditis biopsies taken with cold biopsy forceps Diverticulosis of sigmoid and descending colon Internal hemorrhoids Slightly poor prep especially in the right colon with poor visualization of the right colon but grossly no other big lesions seen in the right colon INFORMED CONSENT: The risks and benefits and alternatives were explained to the patient and informed consent was obtained. PROCEDURE IN DETAIL: The patient was kept NPO after midnight. The procedure was done under conscious sedation with Versed 5 mg and fentanyl 100 mcg titrated slowly to get her sedated Olympus colonoscope was passed through the rectum all the way up to cecum. Too much thick stools in the right colon especially the cecum and ascending colon and hence examination is slightly suboptimal in the cecum and ascending colon but largely no gross lesions seen but very suboptimal examination of the right colon Right colon including hepatic flexure, transverse colon, splenic flexure, descending colon, and sigmoid colon were all visualized and the findings were as follows: Findings: Poor prep of the right colon emesis with suboptimal visualization of the right colon grossly no large lesions Large polyp in the midsigmoid of about 20 mm on a broad-based stalk removed completely with the help of the snare Mild nonspecific sigmoiditis of the with the distal sigmoid colon biopsies taken with cold biopsy forceps Internal hemorrhoids ENDOSCOPIC IMPRESSION Large sigmoid colon polyp in the midsigmoid about 20 mm broad-based stalk removed completely with the help of the hot snare Mild nonspecific sigmoiditis biopsies taken with cold biopsy forceps Diverticulosis of sigmoid and descending colon Internal hemorrhoids Slightly poor prep especially in the right colon with poor visualization of the right colon but grossly no other big lesions seen in the right colonOSCOPIC IMPRESSION: SUGGESTIONS: Await the histology of the polyp Symptomatic treatment for the constipation Symptomatic treatment for the diverticulosis and the hemorrhoids With a large polyp seen as well as the poor prep in the right colon we will recommend repeat evaluation of the colon in 1-2 years especially there is any bleeding maybe even sooner With warm regards, LAYNE Shane MD Aug 03, 2025 11:33
--- NOTE | 2025-08-03 11:39 | DVHOP2 ---
Operative Report DATE OF PROCEDURE: 08/03/25 INDICATIONS FOR THE PROCEDURE: Abdominal pain heartburn belching constipation rectal bleeding PROCEDURE PERFORMED: 1. Esophagogastroduodenoscopy and biopsy POSTOPERATIVE DIAGNOSIS: Hiatal hernia Esophagitis classificatioon C in the distal esophagus biopsies taken with cold biopsy forceps Antral gastritis biopsies taken for H pylori No ulcers no bleeding seen INFORMED CONSENT: The risks and benefits and alternatives were explained to the patient and informed consent was obtained. PROCEDURE IN DETAIL: The patient was kept NPO after midnight. In the endoscopy room, she was given IV fentanyl 75 mcg and Versed, 4 mg titrated slowly to get her sedated. Olympus gastroscope was passed through the oropharynx into the stomach and the duodenum, and the findings were as follows. Esophagus: 1 cm hiatal hernia LA classification C Esophagitis in the distal esophagus with erythema and erosions No Esophageal ulcer No Esophageal stricture Stomach: Fundus: Normal Body and antrum Erythematous streaks in the antrum suggestive of gastritis Pylorus normal Duodenum Normal Endoscopic impression Hiatal hernia Esophagitis classificatioon C in the distal esophagus biopsies taken with cold biopsy forceps Antral gastritis biopsies taken for H pylori No ulcers no bleeding seen Suggestions Await the biopsy results Aggressive treatment with PPIs and see the response We will go ahead no with colon evaluation also because of bleeding Thank you for asking me to take part in the care of this pleasant patient With warm regards, LAYNE Shane MD Aug 03, 2025 11:39
[2025-08-04] VITALS (8 sets, daily range): BP systolic 82–100; BP diastolic 40–58; PULSE 84–91; RESP 15–18; TEMP 97.3–98.7; O2SAT 96–100
[2025-08-04 05:57] LABS: Hemoglobin 9.3 g/dL (12.2-16.2)
[2025-08-04 05:59] LABS: Hematocrit 29.7 % (36.0-46.0); Mean Corpuscular Hemoglobin 22.6 pg (28.0-32.0); Mean Corpuscular Volume 72.4 fL (80.0-100.0); Nucleated Red Blood Cells % 0.2 %
[2025-08-04 06:12] LABS: Alanine Aminotransferase 11 U/L (7-40); Alkaline Phosphatase 82 U/L (46-116); Anion Gap 9 (5-15); BUN/Creatinine Ratio 6.8 (10.0-20.0); Carbon Dioxide 21 mmol/L (20-31); Glucose 83 mg/dL (74-106); Potassium 4.0 mmol/L (3.5-5.1); Sodium 140 mmol/L (136-145); Total Protein 6.6 g/dL (5.7-8.2)
[2025-08-04 06:13] LABS: Albumin 3.5 g/dL (3.2-4.8)
[2025-08-04 06:15] LABS: Bilirubin, Total 0.3 mg/dL (0.2-1.0); Blood Urea Nitrogen 5 mg/dL (9-23); Calcium 8.4 mg/dL (8.7-10.4); Chloride 110 mmol/L (98-107)
[2025-08-04] MEDS ORDERED: FER325T PO (13:47)
[2025-08-04] MEDS ORDERED: PANT40T PO (13:47)
[2025-08-04] MEDS: SODIUM CHLORIDE 0.9% 500 ML IV ONE (17:57)
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
--- NOTE | 2025-08-04 19:55 | DVHPN2 ---
Progress Note - Dictate Date Seen: Aug 04, 2025 Medical Necessity Reason Pt with a Central, PICC or Fol: No Subjective Patient has complaints of some weakness and dizziness Hemoglobin is stable No bleeding vital signs Vital Sign Date Time Temp Pulse Resp B/P (MAP) Pulse Ox O2 Delivery O2 Flow Rate FiO2 08/04/25 16:49 97.3 90 18 92/54 (67) 100 97.3 08/04/25 08:00 Room Air* 0 21 Total Intake and Output 08/03/25 08/03/25 08/04/25 15:00 23:00 07:00 Intake Total 845 ml 1250 ml Output Total 1100 ml Balance 845 ml 150 ml medications Current Medications Medications Dose Ordered Sig/Valorie Route Start Time Stop Time Status Last Admin Dose Admin Sodium Chloride 10 ml Q8HR IV 08/01/25 06:00 08/04/25 14:02 10 ML Acetaminophen/ Hydrocodone Bitart 1 tab Q4HP PRN PO 08/01/25 00:15 08/04/25 12:26 1 TAB Ondansetron HCl 4 mg Q4HP PRN IV 08/01/25 00:15 Acetaminophen 650 mg Q6HP PRN PO 08/01/25 00:15 Ferrous Sulfate 325 mg BIDWM PO 08/01/25 18:00 08/04/25 18:57 325 MG Buspirone HCl 10 mg Q12HR PO 08/01/25 22:00 08/04/25 08:18 10 MG Patient Own Medication 175 mg DAILY PO 08/02/25 14:10 Hold Pantoprazole Sodium 40 mg DAILY@0600 PO 08/03/25 06:00 08/04/25 05:48 40 MG Lorazepam 0.5 mg Q8HP PRN IV 08/03/25 09:45 08/04/25 05:05 0.5 MG Ketorolac Tromethamine 30 mg Q8HPRN PRN IV 08/03/25 11:30 08/06/25 11:30 objective Abdomen is soft nontender no masses bowel sounds normal Hemoglobin stable Awaiting the histology of the polyp laboratory and microbiology Laboratory Tests 08/04/25 04:53 Test 08/04/25 04:53 Range/Units Serum Glucose 83 74-106 mg/dL Assessment/Plan 50-year-old female with complaints of abdominal pain weakness anemia heartburn and constipation anorexia rectal bleeding Abdomen is soft but tenderness in the epigastrium with lower quadrant No masses Colon showed a large polyp which was removed Histology is pending We will recommend close follow-up depending upon the histology , even if benign we will recommend repeat evaluation in 1-2 years because of the poor prep and poor evaluation of the right colon Thank you Dr. Rodas Plan discussed with: Patient LAYNE RODAS MD Aug 04, 2025 19:55
[2025-08-04] MEDS: KETOROLAC TROMETH 30 MG/ML 1ML VIAL IV PRN (23:45)
[2025-08-05 00:54] VITALS: BP 106/66; PULSE 76; RESP 76; TEMP 98.1; O2SAT 98
[2025-08-05 04:29] VITALS: BP 96/71; PULSE 78; RESP 16; TEMP 98.1; O2SAT 99
[2025-08-05 07:33] LABS: Hematocrit 27.9 % (36.0-46.0); Hemoglobin 8.8 g/dL (12.2-16.2)
[2025-08-05 07:53] LABS: Anion Gap 12 (5-15); Carbon Dioxide 20 mmol/L (20-31); Potassium 4.1 mmol/L (3.5-5.1); Sodium 140 mmol/L (136-145)
[2025-08-05 07:54] LABS: Calcium 8.4 mg/dL (8.7-10.4); Chloride 108 mmol/L (98-107)
[2025-08-05 07:59] LABS: BUN/Creatinine Ratio 9.3 (10.0-20.0); Glucose 79 mg/dL (74-106)
[2025-08-05 08:00] VITALS: PULSE 87; RESP 18
[2025-08-05 08:01] LABS: Blood Urea Nitrogen 7 mg/dL (9-23)
[2025-08-05 08:49] VITALS: BP 95/51; PULSE 72; RESP 16; TEMP 97.8; O2SAT 97
[2025-08-05 13:00] VITALS: BP 102/56; PULSE 100; RESP 18; TEMP 97.6; O2SAT 99
[2025-08-05 13:14] VITALS: TEMP 36.6
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
[2025-08-05] MEDS ORDERED: ALPR0.5T PO (17:22)
== END 2025-08-05 14:30 | disposition home or self-care (01) | DRG 241 ==
LOC: ER 19:12 → OVERFLOW 08-01 00:03 → WEST WING 08-01 22:28
PROVIDERS: ADMIT Internal Medicine; ATTEND Internal Medicine
PROC: 0DBN8ZX Excision of Sigmoid Colon, Via Natural or Artificial Opening Endoscopic, Diagnostic (ICD-10-PCS; 2025-08-03)
PROC: 0DBN8ZZ Excision of Sigmoid Colon, Via Natural or Artificial Opening Endoscopic (ICD-10-PCS; 2025-08-03)
PROC: 0DB58ZX Excision of Esophagus, Via Natural or Artificial Opening Endoscopic, Diagnostic (ICD-10-PCS; principal; 2025-08-03 10:30)
PROC: 0DB78ZX Excision of Stomach, Pylorus, Via Natural or Artificial Opening Endoscopic, Diagnostic (ICD-10-PCS; 2025-08-03 10:30)
DX: K29.70 Gastritis, unspecified, without bleeding (principal); D50.9 Iron deficiency anemia, unspecified; E66.9 Obesity, unspecified; F32.A Depression, unspecified; N80.9 Endometriosis, unspecified; K57.30 Diverticulosis of large intestine without perforation or abscess without bleeding; K20.90 Esophagitis, unspecified without bleeding; K52.9 Noninfective gastroenteritis and colitis, unspecified; K59.00 Constipation, unspecified; K44.9 Diaphragmatic hernia without obstruction or gangrene; K64.8 Other hemorrhoids; N83.202 Unspecified ovarian cyst, left side; F41.9 Anxiety disorder, unspecified; K63.5 Polyp of colon; Z82.62 Family history of osteoporosis; Z82.5 Family history of asthma and other chronic lower respiratory diseases; Z81.8 Family history of other mental and behavioral disorders; Z80.3 Family history of malignant neoplasm of breast; Z79.899 Other long term (current) drug therapy; Z90.49 Acquired absence of other specified parts of digestive tract; Z98.51 Tubal ligation status; Z68.32 Body mass index [BMI] 32.0-32.9, adult
CPT/HCPCS: 36415; 43239; 45384; 71045; 74176; 76856; 80048; 80053; 80076; 81001; 82550; 82728; 83540; 83550; 83605; 83735; 84484; 84702; 85014; 85018; 85025; 86850; 86900; 86901; 96360; 97163; G0378; J1885; J2250